=== PATIENT | male | born 1980 | race Caucasian/White ===

== ENCOUNTER 2017-07-28 21:25 | Emergency (ER) | payer SELFPAY ==
[2017-07-28] MEDS ORDERED: Ibuprofen 800 MG TAB ONE (21:56)
[2017-07-28] MEDS ORDERED: HYDROcodone/Acetaminophen 10/325 mg Tablet ONE (21:56)
--- NOTE | 2017-07-28 22:55 | RAD ---
LET SHOULDER THREE VIEWS 07/28/17 A fracture is seen through the mid shaft of the left clavicle with no displacement. The AC joint is n ormal in width. There is no dislocation of the glenohumeral joint. The visible adjacent ribs appear i ntact. IMPRESSION: Nondisplaced fracture of the clavicular shaft. POS: HOME
== END 2017-07-28 22:30 | disposition home or self-care (01) ==
LOC: BURERS 21:25
DX: S42.025A Nondisplaced fracture of shaft of left clavicle, initial encounter for closed fracture (principal); W19.XXXA Unspecified fall, initial encounter